=== PATIENT | male | born 1975 ===

== ENCOUNTER 2016-12-14 10:11 | Emergency (ER) | payer BC ==
[2016-12-14 10:20] VITALS: BP 122/77; PULSE 75; RESP 20; TEMP 97.6; O2SAT 97
--- NOTE | 2016-12-14 10:50 | C.PDOC ---
Time Seen by Provider: 12/14/16 10:44 Chief Complaint (Nursing): Upper Extremity Problem/Injury Past Medical History Vital Signs: Last Vital Signs Temp 97.6 F 12/14/16 10:18 Pulse 75 12/14/16 10:18 Resp 20 12/14/16 10:18 BP 122/77 12/14/16 10:18 Pulse Ox 97 12/14/16 10:18 Family History: States: Diabetes - Social History Hx Alcohol Use: No Hx Substance Use: No - Immunization History Hx Tetanus Toxoid Vaccination: Yes Hx Influenza Vaccination: No Hx Pneumococcal Vaccination: No ED Course And Treatment O2 Sat by Pulse Oximetry: 97 Disposition - Disposition
== END 2016-12-14 10:44 | disposition left against medical advice (07) ==
LOC: C.ER 10:11
DX: Z02.89 Encounter for other administrative examinations (principal); M79.601 Pain in right arm

== ENCOUNTER 2017-10-25 07:50 | Emergency (ER) | payer BC ==
[2017-10-25] MEDS ORDERED: Naproxen 550 mg Tab PO STA (08:05)
[2017-10-25 08:11] VITALS: BP 134/79; PULSE 77; RESP 16; TEMP 97.9; O2SAT 98
[2017-10-25] MEDS ORDERED: Naproxen 550 mg Tab PO ONE (08:15)
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
--- NOTE | 2017-10-25 09:39 | RAD ---
Date of service: 10/25/2017 PROCEDURE: Cervical Spine Radiographs. HISTORY: Pain. COMPARISON: None. FINDINGS: BONES: Mild reversal of upper cervical curvature without fracture or spondylolisthesis identified. Limited spondylosis developing at the C5-6 and C6-7 levels anteriorly. Posterior elements appear intact as well as the odontoid process and C1-2 articulation and craniocervical junction appears unremarkable diffusely. DISC SPACES: Normal. SOFT TISSUES: Normal. No prevertebral soft tissue swelling. OTHER FINDINGS: None. IMPRESSION: Minimal degenerative changes mid to inferior cervical spine with subtle reversal the upper cervical curvature.
== END 2017-10-25 08:54 | disposition home or self-care (01) ==
LOC: C.ER 07:50
DX: S13.4XXA Sprain of ligaments of cervical spine, initial encounter (principal); W18.30XA Fall on same level, unspecified, initial encounter; Y93.55 Activity, bike riding

== ENCOUNTER 2018-07-17 08:48 | Emergency (ER) | payer BC ==
[2018-07-17 09:02] VITALS: O2SAT 97
[2018-07-17] MEDS ORDERED: Naproxen 550 mg Tab PO STA (09:21)
[2018-07-17] MEDS ORDERED: Naproxen 550 mg Tab PO ONE (09:36)
--- NOTE | 2018-07-17 09:58 | RAD ---
PROCEDURE: Radiographs of the Left Shoulder, three views HISTORY: left shoulder pain COMPARISON: None available. FINDINGS: BONES: No acute displaced fracture. The distal clavicle and underlying ribs appear intact. JOINTS: No acute dislocation. SOFT TISSUES: Soft tissues appear unremarkable. No evidence of radiopaque foreign body. IMPRESSION: No acute displaced fracture or dislocation evident. If symptoms persist or if there is continued clinical concern, x-ray follow-up in 7-10 days should be considered.
--- NOTE | 2018-07-17 10:45 | C.PDOC ---
History Of Present Illness 42 y/o male presents to ED complaining of left shoulder pain x5 months, worse with certain movements. States it worsens usually when he moves the arm in diagonal orientation. Denies direct trauma, chest pain, SOB, fever, or rash. Patient has not been seen by orthopedist for current symptoms. Time Seen by Provider: 07/17/18 08:56 Chief Complaint (Nursing): Upper Extremity Problem/Injury History Per: Patient History/Exam Limitations: no limitations Onset/Duration Of Symptoms: Days Current Symptoms Are (Timing): Still Present Past Medical History Reviewed: Historical Data, Nursing Documentation, Vital Signs Vital Signs: Last Vital Signs Temp 98.5 F 07/17/18 08:57 Pulse 94 H 07/17/18 08:57 Resp 18 07/17/18 08:57 BP 140/90 07/17/18 08:57 Pulse Ox 97 07/17/18 08:57 Primary Care Provider: FAMILY PROVIDER,NO Family History: States: Diabetes - Social History Hx Alcohol Use: No Hx Substance Use: No - Immunization History Hx Tetanus Toxoid Vaccination: No Hx Influenza Vaccination: No Hx Pneumococcal Vaccination: No Review Of Systems Constitutional: Negative for: Fever, Chills Cardiovascular: Negative for: Chest Pain Respiratory: Negative for: Shortness of Breath Gastrointestinal: Negative for: Nausea, Vomiting Musculoskeletal: Positive for: Shoulder Pain (Left) Skin: Negative for: Rash Physical Exam - Physical Exam Appears: Non-toxic, No Acute Distress Skin: Warm, Dry Head: Normacephalic Eye(s): bilateral: Normal Inspection Oral Mucosa: Moist Neck: Supple Cardiovascular: Rhythm Regular, No Murmur Respiratory: Normal Breath Sounds, No Rales, No Rhonchi, No Wheezing Extremity: Other (left shoulder no swelling, rash, or ecchymosis; has worsening pain with abduction) Pulses: Left Radial: Normal, Right Radial: Normal Neurological/Psych: Oriented x3, Normal Speech, Normal Motor, Normal Sensation ED Course And Treatment O2 Sat by Pulse Oximetry: 97 (RA) Pulse Ox Interpretation: Normal - Other Rad Left shoulder XR X-Ray: Read By Radiologist Interpretation: FINDINGS: BONES: No acute displaced fracture. The distal clavicle and underlying ribs appear intact. JOINTS: No acute dislocation. SOFT TISSUES: Soft tissues appear unremarkable. No evidence of radiopaque foreign body. IMPRESSION: No acute displaced fracture or dislocation evident. If symptoms persist or if there is continued clinical concern, x-ray follow-up in 7-10 days should be considered. Progress Note: Patient given naproxen and flexeril. Left shoulder XR ordered, showed no fractures or dislocations. Disposition Counseled Patient/Family Regarding: Studies Performed, Diagnosis, Need For Followup, Rx Given - Disposition Referrals: Luisa Byrd MD [Staff Provider] - Disposition: HOME/ ROUTINE Disposition Time: 10:40 Condition: STABLE Additional Instructions: FOLLOW UP WITH ORTHOPEDICS WITHIN 1 WEEK USE MEDICATIONS NEEDED RETURN TO ER IF SYMPTOMS WORSEN Prescriptions: Cyclobenzaprine [Flexeril] 10 mg PO BID PRN #15 tab PRN Reason: Muscle Spasm Naproxen 375 mg PO BID PRN #20 tablet PRN Reason: pain Instructions: Shoulder Sprain (DC) Forms: [employer] (Martiniquais) Print Language: QATARI - Clinical Impression Clinical Impression: Soft tissue injury of left shoulder - Scribe Statement The provider has reviewed the documentation as recorded by the Alejandro Bryan Provider Attestation: All medical record entries made by the Alejandro were at my direction and personally dictated by me. I have reviewed the chart and agree that the record accurately reflects my personal performance of the history, physical exam, medical decision making, and the department course for this patient. I have also personally directed, reviewed, and agree with the discharge instructions and disposition.
[2018-07-17 11:24] VITALS: BP 127/90; PULSE 92; RESP 16; TEMP 98.1
== END 2018-07-17 11:00 | disposition home or self-care (01) ==
LOC: C.ER 08:48
DX: S49.92XA Unspecified injury of left shoulder and upper arm, initial encounter (principal); X58.XXXA Exposure to other specified factors, initial encounter